=== PATIENT | female | born 1975 | race Caucasian/White ===

== ENCOUNTER → 2019-01-21 | Outpatient (CLI) | payer BC, OTHER ==
[~2019-01-21] MED LIST: MULT-658 PO; TRAZ-137 PO
[2019-01-21 13:56] LABS: BASOPHILS # (AUTO) 0.02 x10^3/uL (0-0.1); BASOPHILS % (AUTO) 0 % (0-1); EOSINOPHILS # (AUTO) 0.05 x10^3/uL (0-0.4); EOSINOPHILS % (AUTO) 1 % (1-7); LYMPHOCYTES # (AUTO) 1.56 x10^3/uL (1-3.4); LYMPHOCYTES % (AUTO) 33 % (22-44); MD NO; MEAN CORPUSCULAR HEMOGLOBIN 29.5 pg (27.0-34.8); MEAN CORPUSCULAR HGB CONC 32.6 g/dL (32.4-35.8); MEAN CORPUSCULAR VOLUME 90.4 fL (80-100); MEAN PLATELET VOLUME 8.2 fL (7.4-10.4); MONOCYTES # (AUTO) 0.37 x10^3/uL (0.2-0.8); MONOCYTES % (AUTO) 8 % (2-9); NEUTROPHILS % (AUTO) 57 % (42-75); PLATELET COUNT 259 x10^3/uL (130-400); RED BLOOD COUNT 4.37 x10^6/uL (3.82-5.3); RED CELL DISTRIBUTION WIDTH 14.6 % (9.6-15.2)
[2019-01-21 14:24] LABS: HCG UR SG 1.023 (1.003-1.030); MICROSCOPIC AUTO
[2019-01-21 14:33] LABS: CULTURE INDICATED? NO
== END | disposition home or self-care (01) ==
LOC: STAR 13:00
PROVIDERS: ATTEND Obstetrics & Gynecology
DX: Z01.818 Encounter for other preprocedural examination (principal); N92.0 Excessive and frequent menstruation with regular cycle; D21.9 Benign neoplasm of connective and other soft tissue, unspecified; D64.9 Anemia, unspecified
CPT/HCPCS: 36415; 81001; 81025; 85025

== ENCOUNTER 2019-01-29 08:15 | Day surgery (SDC) | payer BC, OTHER ==
[~2019-01-29] VITALS: Ht 160 cm; Wt 89.9 kg
[~2019-01-29 08:15] MED LIST changes: +BUPIVACAINE/PF 0.25% ONE; +EPINEPHRINE 1 MG/ML, 1ML ONE
[2019-01-29] MEDS ORDERED: LACTATED RINGERS 1,000 ML IV SCH (08:46)
[2019-01-29] MEDS ORDERED: OxyconTIN ER 10 MG TAB.ER PO ONE (09:00)
[2019-01-29] MEDS ORDERED: GABAPENTIN 300 MG CAPSULE PO ONE (09:00)
[2019-01-29] MEDS ORDERED: ACETAMINOPHEN 500 MG TABLET PO ONE (09:00)
[2019-01-29 09:01] VITALS: BP 112/75
[2019-01-29 09:18] LABS: HCG UR SG 1.024 (1.003-1.030)
[2019-01-29] MEDS ORDERED: MIDAZOLAM 1 MG/ML, 2ML ONE (10:45)
[2019-01-29] MEDS ORDERED: FENTANYL PF 100 MCG/2ML ONE ×2 (10:45→11:41)
[2019-01-29] MEDS ORDERED: CEFAZOLIN 1,000 MG ONE (10:47)
[2019-01-29] MEDS ORDERED: PROPOFOL 10 MG/ML, 20ML ONE (10:47)
[2019-01-29] MEDS ORDERED: ONDANSETRON 2MG/ML, 2ML ONE (10:47)
[2019-01-29] MEDS ORDERED: DEXAMETHASONE 4 MG/ML, 1ML ONE (10:47)
[2019-01-29] MEDS ORDERED: BUPIVACAINE/PF-EPI 0.25% 1:200K INFIL ONE (10:57)
[2019-01-29] MEDS ORDERED: ALBUTEROL SULFATE 2.5 MG/3 ML NPPB PRN (11:30)
[2019-01-29] MEDS ORDERED: LABETALOL 5MG/ML, 20ML IV PRN (11:30)
[2019-01-29] MEDS ORDERED: KETOROLAC 30 MG/1 ML IV PRN (11:30)
[2019-01-29] MEDS ORDERED: OXYcodone 5 MG/5 ML ORAL.SOL UDC PO PRN (11:30)
[2019-01-29] MEDS ORDERED: DIAZEPAM 5 MG/ML, 2ML IVPush PRN (11:30)
[2019-01-29] MEDS ORDERED: hydrALAzine 20 MG/ML, 1ML IV PRN (11:30)
[2019-01-29] MEDS ORDERED: ACETAMINOPHEN 325 MG TABLET PO PRN (11:30)
[2019-01-29] MEDS ORDERED: MEPERIDINE/PF 25MG/0.5ML IVPush PRN (11:30)
[2019-01-29] MEDS ORDERED: PROMETHAZINE 25 MG/ML, 1ML IV PRN (11:30)
[2019-01-29] MEDS ORDERED: HYDROmorphone 1 MG/ML, 1ML ONE ×2 (11:41→12:00)
[2019-01-29] MEDS: FENTANYL PF 100 MCG/2ML IV PRN ×2 (11:43→11:58)
[2019-01-29] MEDS: HYDROmorphone 2 MG/ML, 1ML IVPush PRN ×4 (11:45→12:08)
== END 2019-01-29 15:10 | disposition home or self-care (01) ==
LOC: OUT 08:15
PROVIDERS: ATTEND Obstetrics & Gynecology
DX: N92.0 Excessive and frequent menstruation with regular cycle (principal); D25.9 Leiomyoma of uterus, unspecified; N85.8 Other specified noninflammatory disorders of uterus; N94.6 Dysmenorrhea, unspecified; D64.9 Anemia, unspecified; Z98.51 Tubal ligation status; Z98.890 Other specified postprocedural states; Z90.49 Acquired absence of other specified parts of digestive tract
CPT/HCPCS: 36415; 58563; 81025; 86850; 86900; J0171; J0690; J1100; J1170; J2250; J2405; J2704; J3010; J3490; J7120